=== PATIENT | male | born 1945 ===

== ENCOUNTER 2021-04-13 07:58 | Outpatient (CLI) | payer MEDICARE, OTHER | END 2021-04-13 07:59 | disposition home or self-care (01) | LOC: RAD 07:58 | PROVIDERS: ATTEND Internal Medicine Critical Care Medicine | DX: R06.00 Dyspnea, unspecified (principal); R91.8 Other nonspecific abnormal finding of lung field | CPT/HCPCS: 36415; 71046; 85025 ==